=== PATIENT | male | born 1945 | race African-American/Black ===

== ENCOUNTER 2016-12-11 18:55 | Emergency (ER) | payer OTHER ==
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
[2016-12-11 19:12] VITALS: BMI 29.2
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
[2016-12-11 20:27] VITALS: BP 183/79; PULSE 69
== END 2016-12-11 20:25 | disposition home or self-care (01) ==
LOC: ED 18:55
DX: S16.1XXA Strain of muscle, fascia and tendon at neck level, initial encounter (principal); S39.012A Strain of muscle, fascia and tendon of lower back, initial encounter; V49.40XA Driver injured in collision with unspecified motor vehicles in traffic accident, initial encounter; Y93.9 Activity, unspecified; Y92.410 Unspecified street and highway as the place of occurrence of the external cause
CPT/HCPCS: 36415; 72050; 72110; 99283